=== PATIENT | male | born 1985 | race Caucasian/White ===

== ENCOUNTER 2022-03-22 01:47 | Emergency (ER) | payer MEDICAID ==
[~2022-03-22] VITALS: Ht 172.7 cm; Wt 72.2 kg
--- NOTE | 2022-03-22 02:42 | NUR ---
Pt brought in by [facility] in custody for DUI, pt denies having pain or any complaints, VSS.
[2022-03-22 02:51] VITALS: BP 132/84
== END 2022-03-22 02:52 ==
LOC: ER 01:47
DX: Z02.89 Encounter for other administrative examinations (principal); R00.0 Tachycardia, unspecified; Z88.6 Allergy status to analgesic agent
CPT/HCPCS: 99283